=== PATIENT | female | born 1970 | race American Indian/Alaskan Native ===

== ENCOUNTER 2018-03-11 11:55 | Emergency (ER) | payer OTHER ==
[2018-03-11 12:03] VITALS: BP 151/90
== END 2018-03-11 17:22 | disposition left against medical advice (07) ==
LOC: ED 11:55
DX: M54.89 Other dorsalgia (principal); Z53.21 Procedure and treatment not carried out due to patient leaving prior to being seen by health care provider

== ENCOUNTER 2020-09-15 08:03 | Day surgery (SDC) | payer BC, OTHER ==
--- NOTE | 2020-09-14 11:57 | History and Physical Report ---
History of Present Illness Date of examination: 09/15/20 History of present illness: PT with PMPB in July. That has stopped but had an EM stripe of 14 mm on U/S. PT refused to have an EMB in the office. No pelvic pain. PT has been on HRT for a year. Past History Past Medical History: hypertension, thyroid disease (hypothyroid), other (rheumatoid arthritis) Past Surgical History: myomectomy (foot surgery, myringotomy), other [employer] History: herpes Medications and Allergies Allergies Allergy/AdvReac Type Severity Reaction Status Date / Time No Known Allergies Allergy Verified 09/14/20 10:59 Home Medications Medication Instructions Recorded Confirmed Last Taken Type Adalimumab [Humira] 40 mg SQ Q2W 09/14/20 09/14/20 Unknown History Folic Acid 1 mg PO DAILY 09/14/20 09/14/20 Unknown History Levothyroxine [Synthroid] 75 mcg PO QAM 09/14/20 09/14/20 Unknown History atenoloL [Tenormin] 25 mg PO DAILY 09/14/20 09/14/20 Unknown History Review of Systems All systems: negative (except HPI) - Vital Signs Vital signs: see EMR charting - Physical Exam Cardiovascular: Regular rate Lungs: Positive: Clear to auscultation, Normal air movement Genitourinary (Female): Positive: other (deferred to the OR) Results All other labs normal. Assessment and Plan - Patient Problems (1) Endometrial thickening on ultrasound Current Visit: No Status: Acute Plan to address problem: PT will be presenting on 09/15/20 for D&C, hysteroscopy. PT fully consented. Patient fully consented for the surgery. Risks, benefits, and alternatives were all discussed with the patient including risk of bleeding, infection, and potential for injury. Patient understands and accepts these risks. Patient agrees to proceed with surgery. All questions were answered. (2) Postmenopausal bleeding Current Visit: No Status: Acute
[~2020-09-15 08:03] MED LIST: ACETAMINOPHEN 500 MG TAB PO SCH; LACTATED RINGERS 1,000 ML IV SCH; MIDAZOLAM 2 MG/2 ML INJ IV NR
--- NOTE | 2020-09-15 09:39 | Anesthesia Consultation ---
Anesthesia Consult and Med Hx Date of service: 09/15/20 - Airway Anesthetic Teeth Evaluation: Good (braces upper and lower) ROM Head & Neck: Adequate Mental/Hyoid Distance: Adequate Mallampati Class: Class II Intubation Access Assessment: Probably Good - Pre-Operative Health Status ASA Pre-Surgery Classification: ASA2 Proposed Anesthetic Plan: General - Pulmonary Hx Smoking: No Hx Respiratory Symptoms: No - Cardiovascular System Hx Hypertension: Yes (took atenolol this morning) - Central Nervous System CVA: No - Endocrine Hx Renal Disease: No Hx Liver Disease: No Hx Insulin Dependent Diabetes: No Hx Non-Insulin Dependent Diabetes: No Hx Hypothyroidism: Yes - Other Systems Hx Obesity: Yes (BMI 35) - Additional Comments Anesthesia Medical History Comments: No hx anesthetic complications.
--- NOTE | 2020-09-15 09:40 | Anesthesia Day of Surgery ---
Anesthesia Day of Surgery - Day of Surgery Patient Examined: Yes Patient H&P Reviewed: Yes Patient is NPO: Yes Beta Blockers: Yes
[2020-09-15] MEDS ORDERED: fentaNYL 100 MCG/2 ML INJ IV PRN (10:00)
[2020-09-15] MEDS ORDERED: ONDANSETRON 4 MG/2 ML INJ IV PRN (10:00)
[2020-09-15] MEDS ORDERED: LIDOCAINE MPF (2%) 20 MG/1 ML VIAL 5 ML ONE (10:01)
[2020-09-15] MEDS ORDERED: KETOROLAC 30 MG/1 ML INJ ONE (10:01)
[2020-09-15] MEDS ORDERED: ONDANSETRON 4 MG/2 ML INJ ONE (10:01)
[2020-09-15] MEDS ORDERED: dexAMETHasone 20 MG/5 ML VIAL ONE (10:01)
[2020-09-15] MEDS ORDERED: fentaNYL 100 MCG/2 ML INJ ONE (10:02)
[2020-09-15] MEDS ORDERED: propofoL 200 MG/20 ML VIAL IV ONE (10:02)
[2020-09-15] MEDS ORDERED: SODIUM CHLORIDE 0.9% IRRIG SOLN 2000 ML IR ONE (10:40)
--- NOTE | 2020-09-15 10:55 | Post Operative Note ---
Date of procedure: 09/15/20 Pre-op diagnosis: PMPB and EM thickening on U/S Post-op diagnosis: other (per pathology) Findings: The uterus sounded to 12 cm. On hysteroscopic exam, there were no significant intra uterine findings. Left ostia was visualized. The right ostia was not vi sualized well due to some endometrial thickening on that side. Otherwise no significant areas of uterine thickening noted. No other polyps, myomas, or lesions were noted. Procedure: Indication: This is a 50-year-old with PMPB in July. That has stopped but had an EM stripe of 14 mm on U/S. PT refused to have an EMB in the office. As result, patient here for D&C hysteroscopy. Procedure: Patient was taken to the operating room and prepped and draped in the usual fashion. Bimanual exam was done. Findings noted above. Single tooth tenaculum was applied to the anterior lip of the cervix. Uterus was sounded and then adequately dilated for the placement of the hysteroscope which was done without difficulty. Hysteroscopic findings noted above. Hysteroscope then removed and sharp endometrial curettage was performed until a good cry was noted throughout. Good hemostasis noted throughout. Procedure concluded at this point. Patient tolerated the procedure well. All instrument and lap counts were correct. Patient taken to the recovery in stable condition. Anesthesia: GETA Surgeon: JUAN JOSE LOPEZ Estimated blood loss: minimal Pathology: list (EM sonia) Specimen disposition: to lab Condition: stable Disposition: PACU
--- NOTE | 2020-09-15 11:04 | Short Stay Summary ---
Short Stay Documentation Date of service: 09/15/20 Narrative H&P: 50-year-old presented for her D&C hysteroscopy today 09/15/2020. Procedure was uncomplicated. Please see op report and H&P for details. Patient sent home in stable condition and is to follow-up in the office in 4 weeks. - History H&P: dictated - Allergies and Medications Current Medications: Allergies No Known Allergies Allergy (Verified 09/14/20 10:59) Home Medications Medication Instructions Recorded Confirmed Last Taken Type Adalimumab [Humira] 40 mg SQ Q2W 09/14/20 09/15/20 09/13/20 09:00 History Levothyroxine [Synthroid] 75 mcg PO QAM 09/14/20 09/15/20 09/14/20 09:00 History RX: Folic Acid 1 mg PO DAILY 09/14/20 09/15/20 09/14/20 09:00 History atenoloL [Tenormin] 25 mg PO DAILY 09/14/20 09/15/20 09/15/20 05:45 History Estradiol 1 mg PO DAILY 09/15/20 09/15/20 09/14/20 09:00 History Active Medications Acetaminophen (Acetaminophen 500 Mg Tab) 1,000 mg PO PREOP SLIME Stop: 09/15/20 21:00 Last Admin: 09/15/20 09:15 Dose: 1,000 mg Documented by: Fentanyl (Fentanyl 100 Mcg/2 Ml Inj) 50 mcg IV Q5MIN PRN PRN Reason: Pain , Severe (7-10) Stop: 09/15/20 17:00 Lactated Ringer's (Lactated Ringers) 1,000 mls @ 100 mls/hr IV DIRECT SLIME Stop: 09/15/20 23:59 Last Admin: 09/15/20 09:20 Dose: 100 mls/hr Documented by: Midazolam HCl (Midazolam 2 Mg/2 Ml Inj) 2 mg IV PREOP NR Stop: 09/15/20 21:00 Last Admin: 09/15/20 10:00 Dose: 2 mg Documented by: Ondansetron HCl (Ondansetron 4 Mg/2 Ml Inj) 4 mg IV ONCE PRN PRN Reason: Nausea And Vomiting Stop: 09/15/20 17:00 - Disposition Condition at discharge: Stable Disposition: - TO HOME OR SELFCARE - Discharge Diagnoses (1) Endometrial thickening on ultrasound Status: Acute (2) Postmenopausal bleeding Status: Acute Short Stay Discharge Plan Follow up with: PRIMARY CARE, [Primary Care Provider] - 7 Days Forms: Work/School Excuse Out Patient
[2020-09-15 12:08] VITALS: BP 144/84
--- NOTE | 2020-09-15 14:07 | Post Anesthesia Evaluation ---
- Post Anesthesia Evaluation Patient Participated: Yes Airway Patent: Yes Stable Respiratory Function: Yes Nausea/Vomiting: No Temp > 96.8F: Yes Pain Manageable: Yes Adequeate Hydration: Yes Anesthesia Complications: No
== END 2020-09-15 12:20 | disposition home or self-care (01) ==
LOC: OR 08:03
PROVIDERS: ATTEND Obstetrics & Gynecology
DX: N95.0 Postmenopausal bleeding (principal); R93.89 Abnormal findings on diagnostic imaging of other specified body structures; N85.8 Other specified noninflammatory disorders of uterus; I10 Essential (primary) hypertension; E66.9 Obesity, unspecified; M06.9 Rheumatoid arthritis, unspecified; E03.9 Hypothyroidism, unspecified; Z98.890 Other specified postprocedural states; Z79.899 Other long term (current) drug therapy; Z68.35 Body mass index [BMI] 35.0-35.9, adult
CPT/HCPCS: 58558; 88305; A4217; J1100; J1885; J2250; J2405; J2704; J3010; J7120